=== PATIENT | male | born 1965 | race African-American/Black ===

== ENCOUNTER → 2017-08-30 | Outpatient (CLI) | payer OTHER ==
--- NOTE | 2017-08-31 11:32 | RADIOLOGY REPORT (SQ) ---
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 The route of agent administration: Oral and Intravenous ADDITIONAL DRUGS AND DOSES: None. TECHNIQUE: Iodine uptake was measured at 4 and 24 hours. Images of the neck were acquired. LIMITATIONS: None. FINDINGS: 4 HOUR UPTAKE RADIO-IODINE: 0.7%%. Normal Range of 5-15% [facility] 24 HOUR UPTAKE RADIO-IODINE: 1.3%%. Normal Range of 15-30% [facility] SCAN: Barely discernible thyroid activity is seen on the 4 hour delay images. No hyperfunctioning th yroid nodule is identified. OTHER: No other significant finding. IMPRESSION: Significantly deep decreased 4 hour and 24 hour uptake of iodine 123 Barely discernible thyroid activity on the imaging. A dominant hyperfunctioning nodule is not identi fied TECHNICAL DOCUMENTATION: JOB ID: [id number]- All Rights Reserved
== END ==
LOC: RAD 09:05
PROVIDERS: ATTEND Internal Medicine
DX: E05.90 Thyrotoxicosis, unspecified without thyrotoxic crisis or storm (principal)
CPT/HCPCS: 78014; A9516

== ENCOUNTER → 2018-12-05 | Outpatient (CLI) | payer OTHER ==
--- NOTE | 2018-12-05 09:09 | RADIOLOGY REPORT (SQ) ---
EXAM DESCRIPTION: U/S RETROPERITON (RENAL/AORTA) COMPLETED DATE/TIME: 12/05/2018 8:35 am REASON FOR STUDY: ABN RESULTS R94.4 ABNORMAL RESULTS OF KIDNEY FUNCTION STUDIES COMPARISON: 12/08/2015 TECHNIQUE: Dynamic and static grayscale images acquired of the kidneys and bladder and recorded on P ACS. Additional selected color Doppler and spectral images recorded. LIMITATIONS: None. FINDINGS: RIGHT KIDNEY: Normal size measuring 10.1 cm. Normal echogenicity. No solid or suspicious m asses. No hydronephrosis. No calcifications. LEFT KIDNEY: Normal size measuring 9.7 cm. Normal echogenicity. No solid or suspicious masses. No hy dronephrosis. No calcifications. BLADDER: No masses. OTHER FINDINGS: No other significant finding. IMPRESSION: Unremarkable renal ultrasound. No hydronephrosis. TECHNICAL DOCUMENTATION: JOB ID: [id number] [employer]- All Rights Reserved Reading location - IP/workstation name: [email or web address]
== END ==
LOC: RAD 08:04
PROVIDERS: ATTEND Internal Medicine
DX: R94.4 Abnormal results of kidney function studies (principal)
CPT/HCPCS: 76770